=== PATIENT | female | born 1935 | race Caucasian/White ===

== ENCOUNTER 2025-01-23 14:29 | Inpatient (IN) | payer MEDICARE, BC ==
[~2025-01-23] VITALS: Ht 162.6 cm; Wt 70.8 kg
[~2025-01-23 14:29] MED LIST: CELEXA PO; CRESTOR PO; SYNTHROID PO; VYVANSE PO; WARF7.5T23 PO
[2025-01-23 15:06] LABS: PLATELET COUNT (AUTO) 134 K/uL (179-408); RED BLOOD CELL COUNT(AUTO) 4.21 MIL/uL (3.63-4.92); RED CELL DISTRIBUTION WIDTH 14.2 % (12.3-17.7); WHITE BLOOD COUNT (AUTO) 8.3 K/uL (3.8-11.8)
[2025-01-23 15:13] LABS: CREATININE 0.9 mg/dL (0.6-1.3); SODIUM SERUM 140 mmol/L (136-145); UREA NITROGEN, BLOOD 18 mg/dL (7-18)
[2025-01-23] MEDS ORDERED: CHOL500062 PO (15:15)
[2025-01-23] MEDS ORDERED: OXCA300T15 PO (15:15)
[2025-01-23] MEDS ORDERED: RIVA15TA2 PO (15:15)
[2025-01-23] MEDS ORDERED: RISP0.5T5 PO ×2 (15:15)
[2025-01-23] MEDS ORDERED: LEVO100T10 PO (15:15)
[2025-01-23] MEDS ORDERED: CETI-194 PO (15:15)
[2025-01-23] MEDS ORDERED: LORA0.5T48 PO (15:15)
[2025-01-23] MEDS ORDERED: ACET-3117 PO (15:15)
[2025-01-23] MEDS ORDERED: MEMA10TA PO (15:15)
[2025-01-23] MEDS ORDERED: TEMA15CA PO (15:15)
[2025-01-23] MEDS ORDERED: CALC355O18 PO (15:15)
[2025-01-23] MEDS ORDERED: DONE10TA44 PO (15:15)
[2025-01-23] MEDS ORDERED: BENZ-13 PO (15:15)
[2025-01-23] MEDS ORDERED: ATOR40TA PO (15:15)
[2025-01-23] MEDS ORDERED: QUET25TA PO (15:15)
[2025-01-23] MEDS ORDERED: VIT1CAPS44 PO (15:15)
[2025-01-23] MEDS ORDERED: MAGN400O6 PO (15:15)
[2025-01-23] MEDS ORDERED: ESCI-9 PO (15:15)
[2025-01-23] MEDS ORDERED: LOPE2TAB25 PO (15:15)
[2025-01-23 15:22] LABS: ETHANOL < 3 MG/DL (0-10)
[2025-01-23 15:28] LABS: ASPARTATE AMINOTRANSFERASE 26 U/L (15-37); TOTAL PROTEIN, SERUM 7.2 g/dL (6.4-8.2)
[2025-01-23 15:38] LABS: *BILIRUBIN,URIN NEGATIVE (NEGATIVE); *BLOOD, URINE NEGATIVE (NEGATIVE); *CLARITY,URINE CLEAR (CLEAR); *COLOR,URINE YELLOW (YELLOW); *KETONES,URINE NEGATIVE (NEGATIVE); *PROTEIN,URINE NEGATIVE (NEGATIVE); *UROBILINOGEN,URINE 1.0 E.U./dl (NORMAL); LEUKOCYTE ESTERASE ,URINE NEGATIVE (NEGATIVE); NITRITE, URINE NEGATIVE (NEGATIVE); UGLUCOSE NEGATIVE (NEGATIVE)
[2025-01-23 15:49] LABS: *AMPHETAMINE, URINE NEGATIVE (NEGATIVE); *BARBITURATE, URINE NEGATIVE (NEGATIVE); *BENZODIAZEPINE, URINE NEGATIVE (NEGATIVE); *CANNABINOID, URINE NEGATIVE (NEGATIVE); *COCCAINE, URINE NEGATIVE (NEGATIVE); *OPIATE, URINE NEGATIVE (NEGATIVE); *PHENCYCLIDINE SCREEN,URINE NEGATIVE (NEGATIVE); FENTANYL, URINE NEGATIVE (NEGATIVE)
[2025-01-23 15:50] LABS: SQUAMOUS EPITHELIAL CELL,UR NONE SEEN /HPF (NONE SEEN)
[2025-01-23] MEDS ORDERED: ZIPRASIDONE MESYLATE 20 MG VIAL IM ONE (17:58)
[2025-01-23] MEDS: ZIPRASIDONE MESYLATE 20 MG VIAL IM ONE (18:09)
[2025-01-23] MEDS ORDERED: LORAZEPAM 2 MG/1 ML VIAL ONE (19:38)
[2025-01-23] MEDS: LORAZEPAM 2 MG/1 ML VIAL IM ONE (19:42)
[2025-01-23] MEDS ORDERED: ACETAMINOPHEN 325 MG TABLET PO PRN (21:30)
[2025-01-23] MEDS ORDERED: TEMAZEPAM 7.5 MG CAPSULE PO PRN (21:30)
[2025-01-23] MEDS ORDERED: MAG HYDROX/AL HYDROX/SIMETH 30 ML LIQUID UDC PO PRN (21:30)
[2025-01-23] MEDS ORDERED: LORAZEPAM 0.5 MG TABLET PO PRN ×2 (21:30→21:45)
[2025-01-23] MEDS ORDERED: MAGNESIUM HYDROXIDE 30 ML LIQUID UDC PO PRN (21:30)
[2025-01-23] MEDS: BLOOD SUGAR DIAGNOSTIC 1 EACH STRIP VI ONE (21:54)
[2025-01-24] MEDS: LORAZEPAM 0.5 MG TABLET PO PRN ×2 (06:20→13:43)
[2025-01-24] MEDS: LEVOTHYROXINE SODIUM 100 MCG TABLET PO SCH (06:49)
[2025-01-24] MEDS: MEMANTINE HCL 10 MG TABLET PO SCH (08:09)
[2025-01-24] MEDS: DONEPEZIL 10 MG TABLET PO SCH (08:09)
[2025-01-24] MEDS: CETIRIZINE HCL 10 MG TABLET PO SCH (08:10)
[2025-01-24] MEDS ORDERED: MEMANTINE HCL 10 MG TABLET PO SCH (09:00)
[2025-01-24] MEDS: OXCARBAZEPINE 150 MG TABLET PO SCH (13:43)
[2025-01-24 15:25] VITALS: BP 161/74; TEMP 98; O2SAT 96
[2025-01-24] MEDS: RIVAROXABAN 15 MG TABLET PO SCH (17:14)
[2025-01-24 20:00] VITALS: BP 154/82; TEMP 97.7; O2SAT 95
[2025-01-24] MEDS: ATORVASTATIN 40 MG TABLET PO SCH (20:32)
[2025-01-25] MEDS: TEMAZEPAM 7.5 MG CAPSULE PO PRN (02:36)
[2025-01-25 08:10] VITALS: BP 115/55; TEMP 97.8; O2SAT 96
[2025-01-25] MEDS: OXCARBAZEPINE 150 MG TABLET PO SCH (13:00)
[2025-01-25 16:41] VITALS: BP 115/55; TEMP 97.7; O2SAT 95
[2025-01-25 20:00] VITALS: BP 141/82; O2SAT 95
[2025-01-26 08:24] VITALS: BP 138/80; TEMP 98; O2SAT 97
[2025-01-26 12:18] LABS: PLATELET COUNT (AUTO) 153 K/uL (179-408); RED BLOOD CELL COUNT(AUTO) 4.57 MIL/uL (3.63-4.92); RED CELL DISTRIBUTION WIDTH 14.6 % (12.3-17.7); WHITE BLOOD COUNT (AUTO) 9.6 K/uL (3.8-11.8)
[2025-01-26 12:38] LABS: ASPARTATE AMINOTRANSFERASE 31 U/L (15-37); CREATININE 0.8 mg/dL (0.6-1.3); SODIUM SERUM 140 mmol/L (136-145); TOTAL PROTEIN, SERUM 7.4 g/dL (6.4-8.2); UREA NITROGEN, BLOOD 15 mg/dL (7-18)
[2025-01-26 16:49] VITALS: BP 138/80; TEMP 97.7; O2SAT 95
[2025-01-28] MEDS: OLANZAPINE 10 MG VIAL IM ONE (08:31)
[2025-01-28] MEDS: ENSURE ENLIVE (VAN) 240 ML LIQUID PO SCH (16:45)
[2025-01-29 08:05] VITALS: BP 151/56; TEMP 98.2; O2SAT 96
[2025-01-29 13:20] LABS: PLATELET COUNT (AUTO) 167 K/uL (179-408); RED BLOOD CELL COUNT(AUTO) 4.64 MIL/uL (3.63-4.92); RED CELL DISTRIBUTION WIDTH 14.6 % (12.3-17.7); WHITE BLOOD COUNT (AUTO) 8.9 K/uL (3.8-11.8)
[2025-01-29 13:40] LABS: ASPARTATE AMINOTRANSFERASE 24 U/L (15-37); CREATININE 0.8 mg/dL (0.6-1.3); SODIUM SERUM 142 mmol/L (136-145); TOTAL PROTEIN, SERUM 7.5 g/dL (6.4-8.2); UREA NITROGEN, BLOOD 20 mg/dL (7-18)
[2025-01-29 15:10] VITALS: BP 98/77; TEMP 98; O2SAT 96
[2025-01-29 20:00] VITALS: BP 157/71; TEMP 98.1; O2SAT 96
[2025-01-29] MEDS: DIVALPROEX SPRINKLE 125 MG CAP.SPRINK PO SCH (21:18)
[2025-01-29] MEDS: risperiDONE-M 0.5 MG TAB.RAPDIS PO SCH (21:19)
[2025-01-30] MEDS: LORAZEPAM 1 MG TABLET PO ONE (15:41)
[2025-01-30 16:51] LABS: LACTIC ACID 3.3 mmol/L (0.4-2.0)
[2025-01-30 17:52] VITALS: BP 132/60; TEMP 97.6; O2SAT 97
[2025-01-31] MEDS ORDERED: DIVA125C5 PO (11:40)
[2025-01-31] MEDS ORDERED: RISP0.5T65 PO (11:41)
[2025-02-02] MEDS ORDERED: DIVA125C2 PO (10:32)
== END 2025-01-30 19:46 | disposition short-term general hospital (02) | DRG 885 ==
LOC: ER 14:29 → GPS 15:51
PROVIDERS: ADMIT Psychiatry & Neurology Psychosomatic Medicine; ATTEND Nurse Practitioner Acute Care
DX: F29 Unspecified psychosis not due to a substance or known physiological condition (principal); G93.41 Metabolic encephalopathy; F03.93 Unspecified dementia, unspecified severity, with mood disturbance; F03.911 Unspecified dementia, unspecified severity, with agitation; E87.20 Acidosis, unspecified; E44.1 Mild protein-calorie malnutrition; R17 Unspecified jaundice; D68.59 Other primary thrombophilia; D69.6 Thrombocytopenia, unspecified; Z86.16 Personal history of COVID-19; E03.9 Hypothyroidism, unspecified; E78.5 Hyperlipidemia, unspecified; F32.A Depression, unspecified; Z79.899 Other long term (current) drug therapy; Z88.0 Allergy status to penicillin; Z91.040 Latex allergy status; Z79.01 Long term (current) use of anticoagulants; Z95.0 Presence of cardiac pacemaker; E88.09 Other disorders of plasma-protein metabolism, not elsewhere classified
CPT/HCPCS: 36415; 70450; 71045; 76705; 83605; 83735; 84443; 84484; 85025; 85730; 87040; 87086; A4606; A4663; C1758; G0480; J2060; J2358; J3486

== ENCOUNTER 2025-01-30 20:02 | Inpatient (IN) | payer MEDICARE, BC ==
[~2025-01-30] VITALS: Ht 162.6 cm; Wt 69.4 kg
[~2025-01-30 20:02] MED LIST changes: +ACET-3117 PO; +ATOR40TA PO; +BENZ-13 PO; +CALC355O18 PO; -CELEXA PO; +CETI-194 PO; +CHOL500062 PO; -CRESTOR PO; +LEVO100T10 PO; +LOPE2TAB25 PO; +MAGN400O6 PO; +RIVA15TA2 PO; -SYNTHROID PO; +VIT1CAPS44 PO; -VYVANSE PO; -WARF7.5T23 PO
[2025-01-30] MEDS ORDERED: BENZONATATE 100 MG CAPSULE PO PRN (20:30)
[2025-01-30] MEDS ORDERED: MAGNESIUM HYDROXIDE 30 ML LIQUID UDC PO PRN ×2 (20:30)
[2025-01-30] MEDS ORDERED: ONDANSETRON 4 MG/2 ML VIAL IV PRN (20:30)
[2025-01-30] MEDS ORDERED: ACETAMINOPHEN 325 MG TABLET PO PRN (20:30)
[2025-01-30] MEDS ORDERED: LOPERAMIDE HCL 2 MG CAPSULE PO PRN (20:45)
[2025-01-30 20:49] LABS: PLATELET COUNT (AUTO) 147 K/uL (179-408); RED BLOOD CELL COUNT(AUTO) 4.60 MIL/uL (3.63-4.92); RED CELL DISTRIBUTION WIDTH 14.6 % (12.3-17.7); WHITE BLOOD COUNT (AUTO) 11.4 K/uL (3.8-11.8)
[2025-01-30 21:01] LABS: ASPARTATE AMINOTRANSFERASE 24 U/L (15-37); CREATININE 0.8 mg/dL (0.6-1.3); SODIUM SERUM 146 mmol/L (136-145); TOTAL PROTEIN, SERUM 7.9 g/dL (6.4-8.2); UREA NITROGEN, BLOOD 22 mg/dL (7-18)
[2025-01-30 21:38] VITALS: BP 117/72; TEMP 98.1; O2SAT 95
[2025-01-30] MEDS: ATORVASTATIN 40 MG TABLET PO SCH (21:52)
[2025-01-30] MEDS: DIVALPROEX SPRINKLE 125 MG CAP.SPRINK PO SCH (21:52)
[2025-01-30] MEDS: TEMAZEPAM 7.5 MG CAPSULE PO PRN (21:52)
[2025-01-30] MEDS ORDERED: MAG HYDROX/AL HYDROX/SIMETH 30 ML LIQUID UDC PO PRN (22:00)
[2025-01-31 01:46] LABS: *BLOOD, URINE NEGATIVE (NEGATIVE); *CLARITY,URINE TURBID (CLEAR); *COLOR,URINE YELLOW (YELLOW); *KETONES,URINE 2+ (NEGATIVE); *PROTEIN,URINE 1+ (NEGATIVE); *UROBILINOGEN,URINE 4.0 E.U./dl (NORMAL); LEUKOCYTE ESTERASE ,URINE NEGATIVE (NEGATIVE); NITRITE, URINE NEGATIVE (NEGATIVE); UGLUCOSE NEGATIVE (NEGATIVE)
[2025-01-31 01:57] LABS: *BILIRUBIN,URIN 1+ (NEGATIVE)
[2025-01-31 02:24] LABS: SQUAMOUS EPITHELIAL CELL,UR FEW /HPF (NONE SEEN); URINE AMORPHOUS URATE MANY /HPF
[2025-01-31 04:00] VITALS: BP 122/68; TEMP 98; O2SAT 95
[2025-01-31] MEDS: LORAZEPAM 0.5 MG TABLET PO PRN (06:10)
[2025-01-31] MEDS: LEVOTHYROXINE SODIUM 100 MCG TABLET PO SCH (06:10)
[2025-01-31 07:13] LABS: PLATELET COUNT (AUTO) 140 K/uL (179-408); RED BLOOD CELL COUNT(AUTO) 4.35 MIL/uL (3.63-4.92); RED CELL DISTRIBUTION WIDTH 14.3 % (12.3-17.7); WHITE BLOOD COUNT (AUTO) 9.5 K/uL (3.8-11.8)
[2025-01-31 07:31] LABS: CREATININE 0.7 mg/dL (0.6-1.3); SODIUM SERUM 146 mmol/L (136-145); UREA NITROGEN, BLOOD 20 mg/dL (7-18)
[2025-01-31] MEDS: ENSURE ENLIVE (VAN) 240 ML LIQUID PO SCH (08:26)
[2025-01-31] MEDS: CETIRIZINE HCL 10 MG TABLET PO SCH (08:27)
[2025-01-31] MEDS: CHOLECALCIFEROL 1,000 UNIT TABLET PO SCH (08:27)
[2025-01-31 10:07] LABS: ASPARTATE AMINOTRANSFERASE 29.0 U/L (15-37); TOTAL PROTEIN, SERUM 7.5 g/dL (6.4-8.2)
[2025-01-31] MEDS: OLANZAPINE 10 MG VIAL IM ONE (10:29)
[2025-01-31] MEDS ORDERED: DIVA125C5 PO (11:40)
[2025-01-31] MEDS ORDERED: RISP0.5T65 PO (11:41)
[2025-01-31] MEDS: IV NS 1000 ML 1,000 ML IV SCH (14:49)
[2025-01-31] MEDS: RIVAROXABAN 15 MG TABLET PO SCH (17:04)
[2025-01-31 18:02] VITALS: BP 137/83; TEMP 97.8; O2SAT 100
[2025-01-31 20:00] VITALS: BP 154/85; TEMP 98.7; O2SAT 98
[2025-02-01 06:00] VITALS: BP 143/63; TEMP 98; O2SAT 95
[2025-02-01 07:31] LABS: PLATELET COUNT (AUTO) 130 K/uL (179-408); RED BLOOD CELL COUNT(AUTO) 4.19 MIL/uL (3.63-4.92); RED CELL DISTRIBUTION WIDTH 14.3 % (12.3-17.7); WHITE BLOOD COUNT (AUTO) 8.7 K/uL (3.8-11.8)
[2025-02-01 07:54] LABS: CREATININE 0.8 mg/dL (0.6-1.3); SODIUM SERUM 142 mmol/L (136-145); UREA NITROGEN, BLOOD 20 mg/dL (7-18)
[2025-02-01] MEDS: LORAZEPAM 2 MG/1 ML VIAL IM ONE ×3 (11:15→13:01)
[2025-02-01 11:50] VITALS: BP 137/70; TEMP 98.3; O2SAT 94
[2025-02-01 16:31] VITALS: BP 131/61; TEMP 98.3; O2SAT 100
[2025-02-01 19:44] VITALS: BP 134/64; TEMP 98.6; O2SAT 97
[2025-02-01] MEDS: DIVALPROEX SPRINKLE 125 MG CAP.SPRINK PO SCH (22:19)
[2025-02-02 06:10] VITALS: BP 100/61; TEMP 98.2; O2SAT 97
[2025-02-02 06:57] LABS: PLATELET COUNT (AUTO) 125 K/uL (179-408); RED BLOOD CELL COUNT(AUTO) 4.32 MIL/uL (3.63-4.92); RED CELL DISTRIBUTION WIDTH 14.2 % (12.3-17.7); WHITE BLOOD COUNT (AUTO) 9.3 K/uL (3.8-11.8)
[2025-02-02 07:25] LABS: ASPARTATE AMINOTRANSFERASE 39 U/L (15-37); CREATININE 0.8 mg/dL (0.6-1.3); SODIUM SERUM 143 mmol/L (136-145); TOTAL PROTEIN, SERUM 6.7 g/dL (6.4-8.2); UREA NITROGEN, BLOOD 13 mg/dL (7-18)
[2025-02-02 08:05] VITALS: BP 146/70; TEMP 98.5; O2SAT 97
[2025-02-02] MEDS ORDERED: DIVA125C2 PO (10:32)
== END 2025-02-02 15:25 | DRG 641 ==
LOC: MEDSURG3 20:02
PROVIDERS: ADMIT Nurse Practitioner Family; ATTEND Nurse Practitioner Family
PROC: 05HC33Z Insertion of Infusion Device into Left Basilic Vein, Percutaneous Approach (ICD-10-PCS; principal; 2025-02-01)
DX: E87.20 Acidosis, unspecified (principal); R17 Unspecified jaundice; F03.93 Unspecified dementia, unspecified severity, with mood disturbance; F03.94 Unspecified dementia, unspecified severity, with anxiety; R62.7 Adult failure to thrive; Z68.26 Body mass index [BMI] 26.0-26.9, adult; Z66 Do not resuscitate; E87.0 Hyperosmolality and hypernatremia; E03.9 Hypothyroidism, unspecified; Z79.01 Long term (current) use of anticoagulants; Z79.890 Hormone replacement therapy; Z79.899 Other long term (current) drug therapy; Z88.0 Allergy status to penicillin; E78.5 Hyperlipidemia, unspecified; F32.A Depression, unspecified; R79.89 Other specified abnormal findings of blood chemistry; R73.9 Hyperglycemia, unspecified
CPT/HCPCS: 36415; 83605; 83735; 84100; 85025; 87086; A4663; G0378; J2060; J2358; J7040

== ENCOUNTER 2025-02-02 15:30 | Inpatient (IN) | payer MEDICARE, BC ==
[~2025-02-02] VITALS: Ht 162.6 cm; Wt 70.8 kg
[2025-02-02 08:00] VITALS: BP 146/70; TEMP 98.5; O2SAT 95
[2025-02-02 13:15] VITALS: BP 141/70; TEMP 98.5; O2SAT 96
[~2025-02-02 15:30] MED LIST changes: +DIVA125C2 PO; +DIVA125C5 PO; +RISP0.5T65 PO
[2025-02-02] MEDS ORDERED: MAG HYDROX/AL HYDROX/SIMETH 30 ML LIQUID UDC PO PRN (16:30)
[2025-02-02] MEDS ORDERED: LORAZEPAM 0.5 MG TABLET PO PRN (16:30)
[2025-02-02] MEDS ORDERED: ZOLPIDEM 5 MG TABLET PO PRN (16:30)
[2025-02-02] MEDS ORDERED: MAGNESIUM HYDROXIDE 30 ML LIQUID UDC PO PRN (16:30)
[2025-02-02 16:33] VITALS: BP 149/77; TEMP 98.3; O2SAT 98
[2025-02-02 20:02] VITALS: BP 153/82; TEMP 98.1; O2SAT 94
[2025-02-03 07:33] LABS: ASPARTATE AMINOTRANSFERASE 36 U/L (15-37); CREATININE 0.8 mg/dL (0.6-1.3); SODIUM SERUM 136 mmol/L (136-145); TOTAL PROTEIN, SERUM 6.8 g/dL (6.4-8.2); UREA NITROGEN, BLOOD 13 mg/dL (7-18)
[2025-02-03 08:44] VITALS: BP 132/61; TEMP 98.3; O2SAT 98
[2025-02-03] MEDS ORDERED: BENZONATATE 100 MG CAPSULE PO PRN (09:00)
[2025-02-03] MEDS: POTASSIUM CHLORIDE 20 MEQ TAB.PRT.SR PO ONE (11:38)
[2025-02-03] MEDS: MEMANTINE HCL 5 MG TABLET PO SCH (11:38)
[2025-02-03] MEDS: DIVALPROEX SPRINKLE 125 MG CAP.SPRINK PO SCH (12:05)
[2025-02-03 16:55] VITALS: BP 131/61; TEMP 98.1; O2SAT 94
[2025-02-03] MEDS: RIVAROXABAN 15 MG TABLET PO SCH (17:19)
[2025-02-03 20:11] VITALS: BP 141/70; TEMP 98.2; O2SAT 96
[2025-02-03] MEDS: LORAZEPAM 0.5 MG TABLET PO PRN (21:24)
[2025-02-03] MEDS: DONEPEZIL 5 MG TABLET PO SCH (21:25)
[2025-02-04] MEDS: LEVOTHYROXINE SODIUM 100 MCG TABLET PO SCH (06:20)
[2025-02-04] MEDS: BETA CAROTENE/VIT C & E/MIN TABLET PO SCH (09:00)
[2025-02-04] MEDS: ACETAMINOPHEN 325 MG TABLET PO PRN (09:57)
[2025-02-04] MEDS: BENZTROPINE MESYLATE 0.5 MG TABLET PO SCH (10:33)
[2025-02-04] MEDS: TEMAZEPAM 7.5 MG CAPSULE PO PRN (21:28)
[2025-02-05 09:13] VITALS: BP 141/61; TEMP 98.2; O2SAT 98
[2025-02-05 15:35] VITALS: BP 114/68; TEMP 98.2; O2SAT 98
[2025-02-06] MEDS: DIVALPROEX SPRINKLE 125 MG CAP.SPRINK PO SCH (08:56)
[2025-02-06] MEDS ORDERED: VALPROIC ACID 250 MG CAPSULE PO SCH (10:15)
[2025-02-06] MEDS: VALPROIC ACID 250 MG/5 ML LIQUID UDC PO SCH (11:48)
[2025-02-06] MEDS: risperiDONE 1 MG/ML UDC PO SCH ×2 (11:58→20:52)
[2025-02-06 19:52] VITALS: BP 179/99; O2SAT 97
[2025-02-06 21:16] VITALS: BP 142/97
[2025-02-07 07:11] LABS: PLATELET COUNT (AUTO) 133 K/uL (179-408); RED BLOOD CELL COUNT(AUTO) 3.91 MIL/uL (3.63-4.92); RED CELL DISTRIBUTION WIDTH 14.3 % (12.3-17.7); WHITE BLOOD COUNT (AUTO) 5.3 K/uL (3.8-11.8)
[2025-02-07 07:23] LABS: ASPARTATE AMINOTRANSFERASE 16 U/L (15-37); CREATININE 0.8 mg/dL (0.6-1.3); SODIUM SERUM 141 mmol/L (136-145); TOTAL PROTEIN, SERUM 6.3 g/dL (6.4-8.2); UREA NITROGEN, BLOOD 14 mg/dL (7-18)
[2025-02-07 08:00] VITALS: BP 136/61; TEMP 96
[2025-02-07 16:05] VITALS: BP 122/64; TEMP 97.5; O2SAT 96
[2025-02-07] MEDS: METOPROLOL TARTRATE 25 MG TABLET PO SCH (21:07)
[2025-02-07 21:25] VITALS: BP 124/70; TEMP 97.1; O2SAT 97
[2025-02-08 10:00] VITALS: BP 140/72; TEMP 98; O2SAT 98
[2025-02-08 16:05] VITALS: BP 113/64; TEMP 97; O2SAT 95
[2025-02-09 08:57] VITALS: BP 138/68; TEMP 98; O2SAT 98
[2025-02-09] MEDS: VALPROIC ACID 250 MG/5 ML LIQUID UDC PO SCH (12:56)
[2025-02-09] MEDS: risperiDONE 1 MG/ML UDC PO SCH ×2 (12:56→20:08)
[2025-02-09 16:52] VITALS: BP 113/72; TEMP 98; O2SAT 98
[2025-02-09] MEDS: ENSURE ENLIVE (VAN) 240 ML LIQUID PO SCH (17:00)
[2025-02-09 20:04] VITALS: BP 138/74; TEMP 98.1; O2SAT 96
[2025-02-09] MEDS ORDERED: risperiDONE 1 MG/ML UDC PO SCH (21:00)
[2025-02-10 11:54] LABS: PLATELET COUNT (AUTO) 168 K/uL (179-408); RED BLOOD CELL COUNT(AUTO) 4.17 MIL/uL (3.63-4.92); RED CELL DISTRIBUTION WIDTH 14.4 % (12.3-17.7); WHITE BLOOD COUNT (AUTO) 7.9 K/uL (3.8-11.8)
[2025-02-10 12:46] LABS: CREATININE 0.6 mg/dL (0.6-1.3); SODIUM SERUM 140 mmol/L (136-145); UREA NITROGEN, BLOOD 19 mg/dL (7-18)
[2025-02-10 12:52] LABS: ASPARTATE AMINOTRANSFERASE 16 U/L (15-37); TOTAL PROTEIN, SERUM 7.5 g/dL (6.4-8.2)
[2025-02-10 19:53] VITALS: BP 143/73; TEMP 98; O2SAT 97
[2025-02-10 20:07] VITALS: BP 143/73
== END 2025-02-11 18:33 | disposition short-term general hospital (02) | DRG 885 ==
LOC: GPS 15:57
PROVIDERS: ADMIT Psychiatry & Neurology Psychosomatic Medicine; ATTEND Internal Medicine
DX: F29 Unspecified psychosis not due to a substance or known physiological condition (principal); E44.0 Moderate protein-calorie malnutrition; F03.92 Unspecified dementia, unspecified severity, with psychotic disturbance; F03.93 Unspecified dementia, unspecified severity, with mood disturbance; F03.94 Unspecified dementia, unspecified severity, with anxiety; F41.9 Anxiety disorder, unspecified; R62.7 Adult failure to thrive; Z68.26 Body mass index [BMI] 26.0-26.9, adult; Z86.718 Personal history of other venous thrombosis and embolism; Z79.01 Long term (current) use of anticoagulants; E03.9 Hypothyroidism, unspecified; K57.30 Diverticulosis of large intestine without perforation or abscess without bleeding; K44.9 Diaphragmatic hernia without obstruction or gangrene; Z95.2 Presence of prosthetic heart valve; D25.9 Leiomyoma of uterus, unspecified; I70.0 Atherosclerosis of aorta; I10 Essential (primary) hypertension; M15.9 Polyosteoarthritis, unspecified; R73.03 Prediabetes; Z88.0 Allergy status to penicillin; Z87.891 Personal history of nicotine dependence; E87.6 Hypokalemia; E86.0 Dehydration; F32.A Depression, unspecified; E78.5 Hyperlipidemia, unspecified; E66.9 Obesity, unspecified
CPT/HCPCS: 36415; 80164; 83735; 84100; 85025

== ENCOUNTER 2025-02-11 18:43 | Inpatient (IN) | payer MEDICARE, BC ==
[~2025-02-11 18:43] MED LIST changes: -ATOR40TA PO; +CELEXA; -CETI-194 PO; -CHOL500062 PO; -DIVA125C2 PO; -DIVA125C5 PO; +LEVO50TA PO; +LISD50CA2 PO; -RISP0.5T65 PO; +WARF1TAB2
[2025-02-11 19:25] VITALS: BP 125/68; TEMP 97.5; O2SAT 99
[2025-02-11] MEDS ORDERED: TEMAZEPAM 15 MG CAPSULE PO PRN (19:30)
[2025-02-11] MEDS ORDERED: ONDANSETRON 4 MG/2 ML VIAL IV PRN (19:30)
[2025-02-11] MEDS: IV NS 1000 ML 1,000 ML IV PRN (21:52)
[2025-02-11] MEDS: LORAZEPAM 0.5 MG TABLET PO PRN (22:35)
[2025-02-11] MEDS: TEMAZEPAM 7.5 MG CAPSULE PO PRN (22:40)
[2025-02-11] MEDS: risperiDONE 1 MG/ML UDC PO SCH (23:10)
[2025-02-12 05:45] VITALS: BP 141/57; TEMP 98.2; O2SAT 96
[2025-02-12] MEDS: PANTOPRAZOLE SODIUM 40 MG TABLET.DR PO SCH (06:10)
[2025-02-12 07:04] LABS: PLATELET COUNT (AUTO) 153 K/uL (179-408); RED BLOOD CELL COUNT(AUTO) 3.99 MIL/uL (3.63-4.92); RED CELL DISTRIBUTION WIDTH 14.1 % (12.3-17.7); WHITE BLOOD COUNT (AUTO) 8.1 K/uL (3.8-11.8)
[2025-02-12 07:17] LABS: CREATININE 0.7 mg/dL (0.6-1.3); SODIUM SERUM 143 mmol/L (136-145); UREA NITROGEN, BLOOD 15 mg/dL (7-18)
[2025-02-12] MEDS: VALPROIC ACID 250 MG/5 ML LIQUID UDC PO SCH (09:00)
[2025-02-12] MEDS: risperiDONE 1 MG/ML UDC PO SCH (09:00)
[2025-02-12] MEDS ORDERED: ACET650T10 PO (09:07)
[2025-02-12] MEDS ORDERED: BENZ0.5T43 PO (09:08)
[2025-02-12] MEDS ORDERED: BENZ-13 PO (09:08)
[2025-02-12] MEDS ORDERED: BETA1TAB19 PO (09:10)
[2025-02-12] MEDS ORDERED: HYDR-894 PO (09:11)
[2025-02-12] MEDS ORDERED: LACT-246 PO (09:12)
[2025-02-12] MEDS ORDERED: LEVO100T10 PO (09:13)
[2025-02-12] MEDS ORDERED: LORA0.5T48 PO (09:14)
[2025-02-12] MEDS ORDERED: MAGN400O6 PO (09:15)
[2025-02-12] MEDS ORDERED: MAG30ORA PO (09:15)
[2025-02-12] MEDS ORDERED: METO25TA6 PO (09:16)
[2025-02-12] MEDS ORDERED: RISP1SOL5 PO ×2 (09:18)
[2025-02-12] MEDS ORDERED: RIVA15TA PO (09:19)
[2025-02-12] MEDS ORDERED: VALP250C3 PO (09:20)
[2025-02-12] MEDS ORDERED: TEMA15CA PO (09:20)
[2025-02-12 10:33] VITALS: BP 143/51; TEMP 98; O2SAT 94
[2025-02-12 15:41] VITALS: BP 142/98; TEMP 98; O2SAT 94
[2025-02-12 19:25] VITALS: BP 113/37; TEMP 97.3; O2SAT 96
[2025-02-12] MEDS ORDERED: VALPROATE SODIUM 500 MG/5 ML VIAL IV ONE (20:34)
[2025-02-12] MEDS: VALPROATE SODIUM IV 250 MG in IV DEXTROSE 5% 100 ML IV SCH (20:46)
[2025-02-12] MEDS: OLANZAPINE 10 MG VIAL IM PRN (23:24)
[2025-02-13 04:50] VITALS: BP 156/73; TEMP 97.9; O2SAT 95
[2025-02-13 11:23] VITALS: BP 165/68; TEMP 97.8; O2SAT 97
[2025-02-13] MEDS: ENSURE ENLIVE (VAN) 240 ML LIQUID PO SCH ×2 (14:01→17:52)
[2025-02-13] MEDS ORDERED: LORAZEPAM 0.5 MG TABLET PO PRN (14:45)
[2025-02-13] MEDS ORDERED: ACETAMINOPHEN 325 MG TABLET PO PRN (14:45)
[2025-02-13] MEDS ORDERED: BENZONATATE 100 MG CAPSULE PO PRN (14:45)
[2025-02-13] MEDS ORDERED: MAGNESIUM HYDROXIDE 30 ML LIQUID UDC PO PRN (14:45)
[2025-02-13] MEDS ORDERED: TEMAZEPAM 15 MG CAPSULE PO PRN (14:45)
[2025-02-13 15:34] VITALS: BP 160/45; TEMP 98.2; O2SAT 96
[2025-02-13] MEDS: METOPROLOL TARTRATE 25 MG TABLET PO SCH (16:03)
[2025-02-13] MEDS: LEVOTHYROXINE SODIUM 100 MCG TABLET PO SCH (16:03)
[2025-02-13] MEDS: BENZTROPINE MESYLATE 0.5 MG TABLET PO SCH (16:11)
[2025-02-13] MEDS ORDERED: risperiDONE 1 MG/ML UDC PO SCH ×2 (17:00→21:00)
[2025-02-13] MEDS ORDERED: VALPROIC ACID 250 MG CAPSULE PO SCH (17:00)
[2025-02-13] MEDS: RIVAROXABAN 15 MG TABLET PO SCH (18:00)
[2025-02-13 19:20] VITALS: BP 128/61; TEMP 98.8; O2SAT 95
[2025-02-14 04:20] VITALS: BP 152/67; TEMP 97.5; O2SAT 97
[2025-02-14] MEDS: BETA CAROTENE/VIT C & E/MIN TABLET PO SCH (09:00)
[2025-02-14 09:42] VITALS: BP 129/62
[2025-02-14 11:07] VITALS: BP 135/62; TEMP 98.4; O2SAT 93
[2025-02-14 15:02] VITALS: BP 130/80; TEMP 98.2; O2SAT 96
[2025-02-14 19:20] VITALS: BP 175/89; TEMP 97.5; O2SAT 96
[2025-02-15 04:00] VITALS: BP 143/73; TEMP 98.4; O2SAT 97
[2025-02-15 07:28] LABS: CREATININE 0.6 mg/dL (0.6-1.3); SODIUM SERUM 141 mmol/L (136-145); UREA NITROGEN, BLOOD 7 mg/dL (7-18)
[2025-02-15 19:15] VITALS: BP 150/57; TEMP 97.5; O2SAT 100
[2025-02-15] MEDS: DEXTROSE 5% IV SCH (21:46)
[2025-02-15] MEDS: VALPROATE SODIUM IV SCH (21:46)
[2025-02-16 11:11] VITALS: BP 140/52; TEMP 98.2; O2SAT 95
[2025-02-16 15:04] VITALS: BP 139/57; TEMP 97.6; O2SAT 94
[2025-02-16 19:00] VITALS: BP 163/64; TEMP 97.6; O2SAT 97
[2025-02-17 06:31] VITALS: BP 124/54; TEMP 97.8; O2SAT 95
[2025-02-17 11:03] VITALS: BP 159/61; TEMP 98.2; O2SAT 98
[2025-02-17 12:02] LABS: PLATELET COUNT (AUTO) 150 K/uL (179-408); RED BLOOD CELL COUNT(AUTO) 3.99 MIL/uL (3.63-4.92); RED CELL DISTRIBUTION WIDTH 14.4 % (12.3-17.7); WHITE BLOOD COUNT (AUTO) 5.8 K/uL (3.8-11.8)
[2025-02-17 12:10] LABS: CREATININE 0.6 mg/dL (0.6-1.3); SODIUM SERUM 145 mmol/L (136-145); UREA NITROGEN, BLOOD 8 mg/dL (7-18)
[2025-02-17 19:15] VITALS: BP 158/79; TEMP 98.4; O2SAT 94
[2025-02-18 06:21] VITALS: BP 149/66; TEMP 97.8; O2SAT 96
[2025-02-18 06:26] LABS: PLATELET COUNT (AUTO) 156 K/uL (179-408); RED BLOOD CELL COUNT(AUTO) 4.28 MIL/uL (3.63-4.92); RED CELL DISTRIBUTION WIDTH 14.3 % (12.3-17.7); WHITE BLOOD COUNT (AUTO) 7.2 K/uL (3.8-11.8)
[2025-02-18 06:40] LABS: CREATININE 0.5 mg/dL (0.6-1.3); SODIUM SERUM 142 mmol/L (136-145); UREA NITROGEN, BLOOD 6 mg/dL (7-18)
[2025-02-18 10:40] VITALS: BP 152/87; TEMP 98.2; O2SAT 96
[2025-02-18] MEDS ORDERED: POTASSIUM CHLORIDE 20 MEQ TAB.PRT.SR PO ONE (11:00)
[2025-02-18] MEDS: POTASSIUM CHLORIDE 20 MEQ TAB.PRT.SR PO ONE (12:31)
[2025-02-18 16:11] VITALS: BP 149/67; TEMP 98.2; O2SAT 95
[2025-02-18 19:23] VITALS: BP 128/65; TEMP 99.3; O2SAT 97
[2025-02-19 05:57] VITALS: BP 138/59; TEMP 97.9; O2SAT 97
[2025-02-19 07:17] LABS: CREATININE 0.7 mg/dL (0.6-1.3); SODIUM SERUM 145 mmol/L (136-145); UREA NITROGEN, BLOOD 5 mg/dL (7-18)
[2025-02-19 07:23] LABS: PLATELET COUNT (AUTO) 140 K/uL (179-408); RED BLOOD CELL COUNT(AUTO) 4.10 MIL/uL (3.63-4.92); RED CELL DISTRIBUTION WIDTH 14.0 % (12.3-17.7); WHITE BLOOD COUNT (AUTO) 6.4 K/uL (3.8-11.8)
[2025-02-19] MEDS: POTASSIUM CHLORIDE 20 MEQ TAB.PRT.SR PO ONE (10:08)
[2025-02-19 10:43] VITALS: BP 164/66; TEMP 98.4; O2SAT 96
[2025-02-19 16:00] VITALS: BP 160/62; TEMP 98.1; O2SAT 100
[2025-02-19 19:10] VITALS: BP 157/78; TEMP 99.4; O2SAT 98
[2025-02-19] MEDS: ACETAMINOPHEN 325 MG TABLET PO PRN (20:28)
[2025-02-20 05:31] VITALS: BP 147/73; TEMP 98.8; O2SAT 95
[2025-02-20 06:27] LABS: PLATELET COUNT (AUTO) 135 K/uL (179-408); RED BLOOD CELL COUNT(AUTO) 4.29 MIL/uL (3.63-4.92); RED CELL DISTRIBUTION WIDTH 14.4 % (12.3-17.7); WHITE BLOOD COUNT (AUTO) 11.7 K/uL (3.8-11.8)
[2025-02-20 06:56] LABS: CREATININE 0.6 mg/dL (0.6-1.3); SODIUM SERUM 142 mmol/L (136-145); UREA NITROGEN, BLOOD 7 mg/dL (7-18)
[2025-02-20 08:00] VITALS: BP 118/57; TEMP 97.9; O2SAT 98
[2025-02-20] MEDS: REMEDY ESSENTIAL ZINC PASTE 113 GM TP PRN (08:56)
[2025-02-20 12:00] VITALS: BP 132/67; TEMP 97.2; O2SAT 98
[2025-02-20] MEDS: VALPROIC ACID 250 MG/5 ML LIQUID UDC PO SCH (13:34)
[2025-02-20] MEDS ORDERED: VALPROATE SODIUM IV SCH (14:00)
[2025-02-20] MEDS ORDERED: VALPROIC ACID 250 MG/5 ML LIQUID UDC PO SCH (14:00)
[2025-02-20] MEDS ORDERED: DEXTROSE 5% IV SCH (14:00)
[2025-02-20 16:00] VITALS: BP 137/54; TEMP 97.6; O2SAT 96
[2025-02-20 19:00] VITALS: BP 165/79; TEMP 97.6; O2SAT 96
[2025-02-20 21:07] LABS: METHYLMALONIC ACID 81.0 nmol/L (0-378)
[2025-02-21 06:00] VITALS: BP 148/67; TEMP 98; O2SAT 94
[2025-02-21 11:00] VITALS: BP 173/71; TEMP 98; O2SAT 96
[2025-02-21 15:52] VITALS: BP 165/80; TEMP 97.6; O2SAT 94
[2025-02-21 19:36] VITALS: BP 164/59; TEMP 98; O2SAT 95
[2025-02-22] MEDS: MAGNESIUM HYDROXIDE 30 ML LIQUID UDC PO PRN (05:38)
[2025-02-22 05:57] VITALS: BP 188/77; TEMP 97.6; O2SAT 98
[2025-02-22 09:05] VITALS: BP 161/79
[2025-02-22 12:36] VITALS: BP 125/60; TEMP 98.2; O2SAT 95
[2025-02-22 13:44] VITALS: BP 160/54
[2025-02-22 14:27] VITALS: BP 160/54; TEMP 98.4; O2SAT 98
[2025-02-22 19:21] VITALS: BP 176/89; TEMP 97.9; O2SAT 96
[2025-02-23] MEDS: BISACODYL 10 MG SUPP.RECT RC ONE (02:48)
[2025-02-23 05:34] VITALS: BP 176/83; TEMP 97.4; O2SAT 94
[2025-02-23 06:40] LABS: PLATELET COUNT (AUTO) 129 K/uL (179-408); RED BLOOD CELL COUNT(AUTO) 4.09 MIL/uL (3.63-4.92); RED CELL DISTRIBUTION WIDTH 14.2 % (12.3-17.7); WHITE BLOOD COUNT (AUTO) 7.4 K/uL (3.8-11.8)
[2025-02-23 06:56] LABS: CREATININE 0.4 mg/dL (0.6-1.3); SODIUM SERUM 143 mmol/L (136-145); UREA NITROGEN, BLOOD 8 mg/dL (7-18)
[2025-02-23 09:47] LABS: LYMPHOCYTES % (MANUAL) 13 % (20-40); MONOCYTES % (MANUAL) 11 % (2-10); MYELOCYTES % 1 % (0-0); NEUTROPHILS % (MANUAL) 75 % (42-75); PLATELET ESTIMATE DECREASED
[2025-02-23] MEDS: POTASSIUM CHLORIDE 50 ML IV SCH (10:30)
[2025-02-23] MEDS ORDERED: POTASSIUM CHLORIDE 20 MEQ POWDER PACKET PO ONE ×2 (11:00→14:00)
[2025-02-23 11:36] VITALS: BP 148/79; TEMP 98.4; O2SAT 94
[2025-02-23 15:13] VITALS: BP 150/78; TEMP 98.2; O2SAT 95
[2025-02-23 19:38] VITALS: BP 166/83; TEMP 98; O2SAT 94
[2025-02-24 05:51] VITALS: BP 153/72; TEMP 97.9; O2SAT 98
[2025-02-24 07:04] LABS: CREATININE 0.5 mg/dL (0.6-1.3); SODIUM SERUM 148 mmol/L (136-145); UREA NITROGEN, BLOOD 6 mg/dL (7-18)
[2025-02-24 08:39] VITALS: BP 149/58; TEMP 97.6; O2SAT 96
[2025-02-24 11:18] VITALS: BP 154/74; TEMP 97.8; O2SAT 98
[2025-02-24] MEDS: POTASSIUM CHLORIDE 20 MEQ POWDER PACKET PO ONE (11:27)
[2025-02-24 15:38] VITALS: BP 144/65; TEMP 98.6; O2SAT 95
[2025-02-24] MEDS ORDERED: IV D5W 1000ML 1,000 ML IV SCH (17:30)
[2025-02-24] MEDS: IV D5W 1000ML 1,000 ML IV SCH (18:40)
[2025-02-24 19:00] VITALS: BP 127/91; TEMP 98.3; O2SAT 96
[2025-02-25 07:06] LABS: PLATELET COUNT (AUTO) 143 K/uL (179-408); RED BLOOD CELL COUNT(AUTO) 4.06 MIL/uL (3.63-4.92); RED CELL DISTRIBUTION WIDTH 14.3 % (12.3-17.7); WHITE BLOOD COUNT (AUTO) 7.6 K/uL (3.8-11.8)
[2025-02-25 07:08] VITALS: BP 124/73; O2SAT 97
[2025-02-25 07:23] LABS: CREATININE 0.4 mg/dL (0.6-1.3); SODIUM SERUM 142 mmol/L (136-145); UREA NITROGEN, BLOOD 5 mg/dL (7-18)
[2025-02-25] MEDS ORDERED: POTASSIUM CHLORIDE 20 MEQ TAB.PRT.SR PO ONE (08:30)
[2025-02-25] MEDS: MAG HYDROX/AL HYDROX/SIMETH 30 ML LIQUID UDC PO PRN (08:38)
[2025-02-25] MEDS: POTASSIUM CHLORIDE 50 ML IV SCH (08:39)
[2025-02-25] MEDS: POTASSIUM CHLORIDE 20 MEQ POWDER PACKET PO ONE (08:50)
[2025-02-25 08:51] LABS: LYMPHOCYTES % (MANUAL) 23 % (20-40); MONOCYTES % (MANUAL) 15 % (2-10); NEUTROPHILS % (MANUAL) 59 % (42-75)
[2025-02-25] MEDS: MAGNESIUM SULFATE/D5W 100 ML IV SCH (08:51)
[2025-02-25 08:52] LABS: EOSINOPHILS % (MANUAL) 3 % (0-8); PLATELET ESTIMATE DECREASED
[2025-02-25 10:30] VITALS: BP 109/46; TEMP 98; O2SAT 96
[2025-02-25 13:58] VITALS: BP 130/65; TEMP 98.6; O2SAT 97
[2025-02-25 17:03] VITALS: BP 124/58; TEMP 98.2; O2SAT 94
[2025-02-25 19:15] VITALS: BP 137/61; TEMP 98.1; O2SAT 95
[2025-02-26 06:40] VITALS: BP 147/66; TEMP 98.2; O2SAT 97
[2025-02-26] MEDS ORDERED: HYDR50TA68 PO (09:10)
[2025-02-26 09:20] LABS: PLATELET COUNT (AUTO) 156 K/uL (179-408); RED BLOOD CELL COUNT(AUTO) 4.34 MIL/uL (3.63-4.92); RED CELL DISTRIBUTION WIDTH 14.9 % (12.3-17.7); WHITE BLOOD COUNT (AUTO) 8.0 K/uL (3.8-11.8)
[2025-02-26 09:26] LABS: CREATININE 0.5 mg/dL (0.6-1.3); SODIUM SERUM 144 mmol/L (136-145); UREA NITROGEN, BLOOD 4 mg/dL (7-18)
[2025-02-26 10:46] VITALS: BP 137/58; TEMP 97.6; O2SAT 96
[2025-02-26 11:05] LABS: LYMPHOCYTES % (MANUAL) 0 % (20-40); NEUTROPHILS % (MANUAL) 0 % (42-75)
[2025-02-26 15:00] VITALS: BP 131/61; TEMP 97.7; O2SAT 95
[2025-02-26 15:53] VITALS: BP 135/62; TEMP 97.8; O2SAT 96
[2025-02-26] MEDS: BISACODYL 10 MG SUPP.RECT RC ONE (16:26)
== END 2025-02-26 17:13 | DRG 640 ==
LOC: MEDSURG3 18:43 → MERGE 18:43
PROVIDERS: ADMIT Nurse Practitioner Acute Care; ATTEND Psychiatry & Neurology Psychosomatic Medicine
PROC: 05HD33Z Insertion of Infusion Device into Right Cephalic Vein, Percutaneous Approach (ICD-10-PCS; 2025-02-12)
PROC: 0HBRXZZ Excision of Toe Nail, External Approach (ICD-10-PCS; principal; 2025-02-26)
DX: E86.0 Dehydration (principal); G93.41 Metabolic encephalopathy; E44.0 Moderate protein-calorie malnutrition; F02.83 Dementia in other diseases classified elsewhere, unspecified severity, with mood disturbance; R62.7 Adult failure to thrive; E87.0 Hyperosmolality and hypernatremia; G30.9 Alzheimer's disease, unspecified; E03.9 Hypothyroidism, unspecified; E11.9 Type 2 diabetes mellitus without complications; Z66 Do not resuscitate; K44.9 Diaphragmatic hernia without obstruction or gangrene; Z86.718 Personal history of other venous thrombosis and embolism; Z78.1 Physical restraint status; Z91.148 Patient's other noncompliance with medication regimen for other reason; L60.3 Nail dystrophy; Z88.0 Allergy status to penicillin; Z79.890 Hormone replacement therapy; E83.42 Hypomagnesemia; E87.6 Hypokalemia; K57.30 Diverticulosis of large intestine without perforation or abscess without bleeding; I10 Essential (primary) hypertension; M15.9 Polyosteoarthritis, unspecified; Z79.899 Other long term (current) drug therapy; F32.A Depression, unspecified; I70.90 Unspecified atherosclerosis; R79.89 Other specified abnormal findings of blood chemistry
CPT/HCPCS: 36415; 70030-TC; 80164; 83735; 83921; 84100; 84443; 85025; A4663; G0378; J2358; J3475; J3480; J3490; J7040; J7042; J7070